=== PATIENT | female | born 2000 | race Asian ===

== ENCOUNTER 2021-01-25 23:11 | Emergency (ER) | payer SELFPAY ==
[~2021-01-25] VITALS: Ht 162.6 cm; Wt 40.4 kg
[2021-01-25] MEDS ORDERED: KETOROLAC TROMETHAMINE 30 MG/ML VIAL IV STA (23:14)
[2021-01-25] MEDS ORDERED: METOCLOPRAMIDE HCL 10 MG/2ML VIAL IV ONE (23:15)
[2021-01-25] MEDS ORDERED: DIPHENHYDRAMINE HCL 25 MG CAP PO ONE (23:15)
[2021-01-25] MEDS ORDERED: SODIUM CHLORIDE 0.9% 1000ML 1,000 ML IV SCH (23:15)
[2021-01-25] MEDS ORDERED: METOCLOPRAMIDE HCL 10 MG/2ML VIAL ONE (23:48)
[2021-01-25] MEDS ORDERED: DIPHENHYDRAMINE HCL 25 MG CAP ONE (23:48)
[2021-01-25] MEDS ORDERED: SODIUM CHLORIDE 0.9% 1000ML 1,000 ML ONE (23:49)
[2021-01-25] MEDS ORDERED: KETOROLAC TROMETHAMINE 30 MG/ML VIAL ONE (23:49)
[2021-01-26 00:38] VITALS: BP 106/70
== END 2021-01-26 00:38 | disposition home or self-care (01) ==
LOC: FSED 23:35
DX: R51.9 Headache, unspecified (principal)
CPT/HCPCS: 96374; 96376; 99283; J1885; J2765; J7030